=== PATIENT | male | born 2005 | race Two or more races ===

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

== ENCOUNTER 2024-04-15 13:34 | Outpatient (CLI) | payer OTHER | END 2024-04-15 13:43 | disposition home or self-care (01) | LOC: SONOGRAMA 13:34 | DX: N20.0 Calculus of kidney (principal) ==

== ENCOUNTER 2024-10-07 16:04 | Emergency (ER) | payer OTHER ==
[~2024-10-07] VITALS: Ht 180.3 cm; Wt 78.0 kg
[2024-10-07 16:13] VITALS: BP 118/64; O2SAT 99
[2024-10-07] MEDS ORDERED: METHYLPREDNISOLONE SOD SUCC 40 MG VIAL ONE (17:10)
[2024-10-07] MEDS ORDERED: WATER FOR INJ.,BACTERIOSTATIC 30 ML VIAL IJ ONE (17:11)
[2024-10-07] MEDS ORDERED: METHYLPREDNISOLONE SOD SUCC 40 MG VIAL IM ONE (17:15)
== END 2024-10-07 18:40 | disposition home or self-care (01) ==
LOC: EMR PED 16:07 → ER 16:07 → EMR PED 18:17
DX: M25.561 Pain in right knee (principal); Z88.6 Allergy status to analgesic agent

== ENCOUNTER 2024-10-16 11:58 | Outpatient (CLI) | payer OTHER | END 2024-10-16 12:01 | disposition home or self-care (01) | LOC: MRI 11:58 | PROVIDERS: ATTEND General Practice | DX: M25.561 Pain in right knee (principal) | CPT/HCPCS: 73718 ==